=== PATIENT | female | born 1995 | race Caucasian/White ===

== ENCOUNTER 2020-11-06 21:46 | Emergency (ER) | payer BC ==
[2020-11-06] MEDS ORDERED: Ondansetron 4 MG/2 ML SDV IVPUSH ONE (22:49)
[2020-11-06] MEDS ORDERED: Dextrose 5%-Lactated Ringers 1,000 ML IV SCH (23:00)
[2020-11-06 23:32] LABS: BLOOD UREA NITROGEN,BUN 10 mg/dL (7.0-18.0); CARBON DIOXIDE,CO2 25.3 mmol/L (21.0-32.0); CHLORIDE,CL 103 mmol/L (98-107); GLUCOSE RANDOM 95 mg/dL (74-106); POTASSIUM,K 3.4 mmol/L (3.5-5.1); SODIUM,NA 138 mmol/L (136-145)
[2020-11-07] MEDS ORDERED: Ondansetron 4 MG Tab.DIS PO ONE ×2 (00:20)
--- NOTE | 2020-11-07 00:22 | EDM.PDOC ---
ED HPI GENERAL MEDICAL PROBLEM - General Chief Complaint: Gastrointestinal Problem Stated Complaint: VOMITTING, DIARRHEA Time Seen by Provider: 11/06/20 22:16 - History of Present Illness INITIAL COMMENTS - FREE TEXT/NARRATIVE: CHIEF COMPLAINT(S): Vomiting HISTORY OF PRESENT ILLNESS: This is a 25 year old woman without a PMH presenting to the ED with vomiting. The patient states that she has been experiencing non b lood non bilious vomiting for the last three days. She has some also associated diarrhea which is non bloody. She states she was able to tolerate some food last night but it has worsened today. The patient states that she is experiencing lower abdomen pain that began 3 days ago. She states the pain is located in the lower abdomen but is all over her abdomen at times and describes the pain as sha rp. She states that there is no radiation and is constant 8/10. She states that the pain is not relieved by anything and the pain is exacerbated by bowel movements and vomiting. She states that her boyfriend is having similar symptoms. She denies any chest pain, shortness of breath, headache, loss of taste or vision. REVIEW OF SYSTEMS: Constitutional: Denies fever, chills. Eyes: Denies eye pain Ears, Nose, Mouth, & Throat: Denies earache Cardiovascular: Denies chest pain Respiratory: Denies shortness of breath Gastrointestinal: Positive for abdominal pain, nasuea, vomiting, and diarrhea. Denies hematemesis, bilious emesis, hematochezia, or melena. Genitourinary: Denies hematuria, dysuria, vaginal bleeding/discharge Skin:Denies a rash MSK: Denies joint pain Neurological: Denies blurred vision Psychiatric: Denies depression PAST MEDICAL HISTORY: As per history of present illness and as reviewed below otherwise noncontributory. SURGICAL HISTORY: As per history of present illness and as reviewed below otherwise noncontributory. LMP: 2 weeks ago SOCIAL HISTORY: As per history of present illness and as reviewed below otherwise noncontributory. FAMILY HISTORY: As per history of present illness and as reviewed below otherwise noncontributory. EXAMINATION OF ORGAN SYSTEMS/BODY AREAS: Constitutional: BP 120/71, HR 77, RR 17 with an O2 of 98% RA. T 36.7 General: Well appearing woman in NAD Psychiatric: Appropriate mood and affect. Eyes: No scleral icterus or conjunctival erythema ENMT: Pasty mucous membranes. No pharyngeal erythema Cardiovascular: Regular, rate, and rhythm. No gallops, murmurs, or rubs. Bilateral upper extremity pulses symmetric and intact. No peripheral edema. No JVD. Respiratory: Lungs clear to auscultation bilaterally. No wheezes, rales, or rhonchi. Gastrointestinal: Soft, tenderness throughout abdomen but worse in lower quadrats, non-distended. Normoactive bowel sounds Genitourinary: Tenderness to suprapubic palpation. No CVA tenderness Musculoskeletal: Normal range of motion. Skin: No lesions or abrasions. Neurological: Alert, GCS 15 MEDICAL DECISION MAKING AND COURSE IN THE ED WITH INTERPRETATION/REVIEW OF DIAGNOSTIC STUDIES: This is a 25 year old woman without any PMH who presents with nonspecific abdominal pain associated with nausea, vomiting, and diarrhea. The patient has normal vital signs. At this time the patient has no antibiotic use therefore C dif is not a consideration. Given that her boyfriend has similar symptoms this is likely gastroenteritis. Given the location of pain will obtain UA to evaluate for cysitits. We obatin labs to evaluate for electrolyte abnormalities. Will give patient 1L D5 LR bolus and zofran and reevaluate for PO toleration. Laboratory: CBC reveals a leukocytosis of 12.95 with neutrophilic predominance without any segmented neutrophils. CMP reveals hypokalemia at 3.4 and mildly elevated bilirubin at 1.5 otherwise unremarkable. hCG is negative. Urinalysis was a clean catch and was negative for nitrite, trace leukocyte esterase with 1-4 WBCs and few bacteria. Trace ketones. Negative blood. Interpretation: Negative On reevaluation, the patient was able to tolerate p.o. and her vital signs remained normal. I did discuss with patient that at this time I do believe is gastroenteritis as her partner also had similar symptoms. I discussed with her that it is important to keep tolerating fluids by mouth therefore I did provide her with Zofran 2 tablets to take home as the pharmacy is closed and sent a prescription. She is to return for any new or worsening symptoms. She was amenable to discharge at this time and had no further questions. She was given strict return precautions. DISPOSITION: The patient was discharged home in stable condition. The patient will follow up with primary care physician within 1 week CONDITION: Fair PROCEDURES: None FINAL IMPRESSION(S)/DIAGNOSES: 1. Acute vomiting and diarrhea likely secondary to gastroenteritis Gonzalo Valencia M.D.. 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: cyst in the ovary (unk if R or L) Social & Family History - Family History Family Medical History: No Pertinent Family History - Tobacco Use Tobacco Use Status *Q: Never Tobacco User Second Hand Smoke Exposure: No - Caffeine Use Caffeine Use: Reports: None - Recreational Drug Use Recreational Drug Use: No ED ROS GENERAL - Review of Systems Review Of Systems: See Below ED EXAM, GENERAL - Physical Exam Exam: See Below Course - Vital Signs Last Recorded V/S: Last Vital Signs Temp 36.7 C 11/06/20 22:42 Pulse 71 11/07/20 00:00 Resp 15 11/07/20 00:00 BP 104/64 11/07/20 00:00 Pulse Ox 99 11/07/20 00:00 - Orders/Labs/Meds Labs: Laboratory Tests 11/06/20 11/06/20 11/06/20 Range/Units 23:02 23:02 23:02 WBC 12.95 H (4.0-11.0) K/uL RBC 4.45 (4.30-5.90) M/uL Hgb 13.9 (12.0-16.0) g/dL Hct 41.8 (36.0-46.0) % MCV 93.9 (80.0-98.0) fL MCH 31.2 (27.0-32.0) pg MCHC 33.3 (31.0-37.0) g/dL RDW Std Deviation 39.9 (28.0-62.0) fl RDW Coeff of Joanne 12 (11.0-15.0) % Plt Count 258 (150-400) K/uL MPV 10.30 (7.40-12.00) fL Neut % (Auto) 86.8 H (48.0-80.0) % Lymph % (Auto) 6.6 L (16.0-40.0) % [place] % (Auto) 5.9 (0.0-15.0) % Eos % (Auto) 0.5 (0.0-7.0) % Baso % (Auto) 0.2 (0.0-1.5) % Neut # (Auto) 11.2 H (1.4-5.7) K/uL Lymph # (Auto) 0.9 (0.6-2.4) K/uL [place] # (Auto) 0.8 (0.0-0.8) K/uL Eos # (Auto) 0.1 (0.0-0.7) K/uL Baso # (Auto) 0.0 (0.0-0.1) K/uL Nucleated RBC % 0.0 /100WBC Nucleated RBCs # 0 K/uL Sodium 138 (136-145) mmol/L Potassium 3.4 L (3.5-5.1) mmol/L Chloride 103 (98-107) mmol/L Carbon Dioxide 25.3 (21.0-32.0) mmol/L BUN 10 (7.0-18.0) mg/dL Creatinine 0.8 (0.6-1.0) mg/dL Est Cr Clr Drug Dosing 97.06 mL/min Estimated GFR (MDRD) > 60.0 ml/min Glucose 95 (74-106) mg/dL POC Glucose (60-110) mg/dL Calcium 9.1 (8.5-10.1) mg/dL Total Bilirubin 1.5 H (0.2-1.0) mg/dL AST 23 (15-37) IU/L ALT 40 (14-63) IU/L Alkaline Phosphatase 54 (46-116) U/L Total Protein 8.1 (6.4-8.2) g/dL Albumin 4.4 (3.4-5.0) g/dL Globulin 3.7 (2.6-4.0) g/dL Albumin/Globulin Ratio 1.2 (0.9-1.6) HCG, Qual NEGATIVE (NEG) Urine Color Urine Appearance Urine pH (5.0-8.0) Ur Specific [place] (1.001-1.035) Urine Protein (NEGATIVE) mg/dL Urine Glucose (UA) (NEGATIVE) mg/dL Urine Ketones (NEGATIVE) mg/dL Urine Occult Blood (NEGATIVE) Urine Nitrite (NEGATIVE) Urine Bilirubin (NEGATIVE) Urine Urobilinogen (<2.0) EU/dL Ur Leukocyte Esterase (NEGATIVE) Urine RBC (0-2/HPF) Urine WBC (0-5/HPF) Ur Epithelial Cells (NONE-FEW) Urine Bacteria (NEGATIVE) 11/06/20 11/06/20 Range/Units 23:02 23:30 WBC (4.0-11.0) K/uL RBC (4.30-5.90) M/uL Hgb (12.0-16.0) g/dL Hct (36.0-46.0) % MCV (80.0-98.0) fL MCH (27.0-32.0) pg MCHC (31.0-37.0) g/dL RDW Std Deviation (28.0-62.0) fl RDW Coeff of Joanne (11.0-15.0) % Plt Count (150-400) K/uL MPV (7.40-12.00) fL Neut % (Auto) (48.0-80.0) % Lymph % (Auto) (16.0-40.0) % [place] % (Auto) (0.0-15.0) % Eos % (Auto) (0.0-7.0) % Baso % (Auto) (0.0-1.5) % Neut # (Auto) (1.4-5.7) K/uL Lymph # (Auto) (0.6-2.4) K/uL [place] # (Auto) (0.0-0.8) K/uL Eos # (Auto) (0.0-0.7) K/uL Baso # (Auto) (0.0-0.1) K/uL Nucleated RBC % /100WBC Nucleated RBCs # K/uL Sodium (136-145) mmol/L Potassium (3.5-5.1) mmol/L Chloride (98-107) mmol/L Carbon Dioxide (21.0-32.0) mmol/L BUN (7.0-18.0) mg/dL Creatinine (0.6-1.0) mg/dL Est Cr Clr Drug Dosing mL/min Estimated GFR (MDRD) ml/min Glucose (74-106) mg/dL POC Glucose 93 (60-110) mg/dL Calcium (8.5-10.1) mg/dL Total Bilirubin (0.2-1.0) mg/dL AST (15-37) IU/L ALT (14-63) IU/L Alkaline Phosphatase (46-116) U/L Total Protein (6.4-8.2) g/dL Albumin (3.4-5.0) g/dL Globulin (2.6-4.0) g/dL Albumin/Globulin Ratio (0.9-1.6) HCG, Qual (NEG) Urine Color YELLOW Urine Appearance SLT CLOUDY Urine pH 6.0 (5.0-8.0) Ur Specific [place] 1.010 (1.001-1.035) Urine Protein NEGATIVE (NEGATIVE) mg/dL Urine Glucose (UA) NEGATIVE (NEGATIVE) mg/dL Urine Ketones TRACE H (NEGATIVE) mg/dL Urine Occult Blood NEGATIVE (NEGATIVE) Urine Nitrite NEGATIVE (NEGATIVE) Urine Bilirubin NEGATIVE (NEGATIVE) Urine Urobilinogen 0.2 (<2.0) EU/dL Ur Leukocyte Esterase TRACE H (NEGATIVE) Urine RBC 0-2 (0-2/HPF) Urine WBC 1-4 (0-5/HPF) Ur Epithelial Cells FEW (NONE-FEW) Urine Bacteria FEW (NEGATIVE) Meds: Medications Discontinued Medications Generic Name Dose Route Start Last Admin Trade Name Freq PRN Reason Stop Dose Admin Dextrose/Lactated Ringer's 1,000 mls @ 999 mls/hr 11/06/20 23:00 11/06/20 23:31 Dextrose 5%-Lactated Ringers IV 999 mls/hr ASDIRECTED FELICITY Administration Ondansetron HCl 4 mg 11/06/20 22:49 11/06/20 23:15 Ondansetron 4 Mg/2 Ml Sdv IVPUSH 11/06/20 22:50 4 mg ONETIME ONE Administration Ondansetron HCl 4 mg 11/07/20 00:20 11/07/20 00:55 Ondansetron 4 Mg Tab.Dis PO 11/07/20 00:21 4 mg ONETIME ONE Administration Ondansetron HCl 4 mg 11/07/20 00:20 11/07/20 00:55 Ondansetron 4 Mg Tab.Dis PO 11/07/20 00:21 4 mg ONETIME ONE Administration Departure - Departure Time of Disposition: 00:21 Disposition: Home, Self-Care 01 Condition: Fair Clinical Impression: Gastroenteritis - Discharge Information *PRESCRIPTION DRUG MONITORING PROGRAM REVIEWED*: No *COPY OF PRESCRIPTION DRUG MONITORING REPORT IN PATIENT GALILE[place]: No Prescriptions: Ondansetron [Zofran ODT] 4 mg PO Q6H PRN #10 tab.dis PRN Reason: Nausea/Vomiting Instructions: Viral Gastroenteritis, Adult, [id number] Referrals: PCP,None [Primary Care Provider] - Forms: ED Department Discharge Additional Instructions: Your eval today on an emergent basis. At this time I do believe your symptoms are secondary to a viral gastroenteritis. Your laboratory analysis was normal. I do recommend using Zofran as needed for nausea. As discussed please use a bland diet including fluids like soups and use Gatorade and Pedialyte and water to keep hydrated. If you have any worsening of your symptoms or inability to eat or drink please return to the emergency department. Please follow-up with your primary care physician within 2 to 3 days. [facility] - [facility] [address] [place] [address] [place] [address] The patient is informed of any results of their evaluation and diagnostic workup and all questions are answered. They are given discharge instructions and return precautions. The patient is stable for discharge. The patient states they understand and agree with the plan and that they will return if their symptoms get worse or if they have any new concerns. The following information is given to patients seen in the emergency department who are being discharged to home. This information is to outline your options for follow-up care. We provide all patients seen in our emergency department with a follow-up referral. The need for follow-up, as well as the timing and circumstances, are variable depending upon the specifics of your emergency department visit. If you don't have a primary care physician on staff, we will provide you with a referral. We always advise you to contact your personal physician following an emergency department visit to inform them of the circumstance of the visit and for follow-up with them and/or the need for any referrals to a consulting specialist. The emergency department will also refer you to a specialist when appropriate. This referral assures that you have the opportunity for follow-up care with a specialist. All of these measure are taken in an effort to provide you with optimal care, which includes your follow-up. Under all circumstances we always encourage you to contact your private physician who remains a resource for coordinating your care. When calling for follow-up care, please make the office aware that this follow-up is from your recent emergency room visit. If for any reason you are refused follow-up, please contact the [facility] Emergency Department at and asked to speak to the emergency department charge nurse. Sepsis Event Note (ED) - Evaluation Sepsis Screening Result: No Definite Risk
== END 2020-11-07 00:57 | disposition home or self-care (01) ==
LOC: MW.ED 21:46
DX: R11.2 Nausea with vomiting, unspecified (principal); R19.7 Diarrhea, unspecified
CPT/HCPCS: 36415; 80053; 81001; 82962; 84703; 85025; 96374; 99284; A9270; J2405; J7121; 99283